=== PATIENT | female | born 1960 | race Two or more races ===

== ENCOUNTER 2025-02-25 09:09 | Day surgery (SDC) | payer OTHER ==
[2025-02-23 12:08] VITALS: BMI 25.9
[2025-02-25 09:40] VITALS: RESP 16
[2025-02-25] MEDS ORDERED: ONDANSETRON 4 MG/2 ML VIAL ONE (10:13)
[2025-02-25 10:52] VITALS: PULSE 67; TEMP 97.8
[2025-02-25 10:55] VITALS: BP 115/58
== END 2025-02-25 10:55 | disposition home or self-care (01) ==
LOC: FASU-ENDO 09:09
PROVIDERS: ATTEND Internal Medicine Gastroenterology
PROC: 0DB98ZX Excision of Duodenum, Via Natural or Artificial Opening Endoscopic, Diagnostic (ICD-10-PCS; 2025-02-25)
PROC: 0DB78ZX Excision of Stomach, Pylorus, Via Natural or Artificial Opening Endoscopic, Diagnostic (ICD-10-PCS; 2025-02-25)
PROC: 0DB68ZX Excision of Stomach, Via Natural or Artificial Opening Endoscopic, Diagnostic (ICD-10-PCS; 2025-02-25)
PROC: 0DB48ZX Excision of Esophagogastric Junction, Via Natural or Artificial Opening Endoscopic, Diagnostic (ICD-10-PCS; 2025-02-25)
PROC: 0DBH8ZX Excision of Cecum, Via Natural or Artificial Opening Endoscopic, Diagnostic (ICD-10-PCS; principal; 2025-02-25 10:02)
DX: Z12.11 Encounter for screening for malignant neoplasm of colon (principal); K63.5 Polyp of colon; K57.30 Diverticulosis of large intestine without perforation or abscess without bleeding; Z86.0100 Personal history of colon polyps, unspecified; K21.00 Gastro-esophageal reflux disease with esophagitis, without bleeding; K29.50 Unspecified chronic gastritis without bleeding; K31.89 Other diseases of stomach and duodenum; K22.2 Esophageal obstruction
CPT/HCPCS: 88305-TC; 88342-TC